=== PATIENT | male | born 1960 | race African-American/Black ===

== ENCOUNTER 2016-07-31 08:38 | Emergency (ER) | payer OTHER ==
[~2016-07-31] VITALS: Ht 167.6 cm; Wt 82.3 kg
[~2016-07-31 08:38] MED LIST: ERYTHROMYC1 APPLICAT LEFT EYE; EYE DROPS15 M1 BOTH EYES
[2016-07-31] MEDS ORDERED: TYLENOL WITH C1 EACH PO (10:27)
[2016-07-31 10:38] VITALS: BP 113/81
== END 2016-07-31 10:40 | disposition home or self-care (01) ==
LOC: EME 08:38
DX: M16.12 Unilateral primary osteoarthritis, left hip (principal); F17.200 Nicotine dependence, unspecified, uncomplicated
CPT/HCPCS: 73502; 99281; 99284

== ENCOUNTER 2017-02-17 11:49 | Emergency (ER) | payer OTHER ==
[~2017-02-17] VITALS: Ht 167.6 cm; Wt 82.5 kg
[~2017-02-17 11:49] MED LIST changes: +TYLENOL WITH C1 EACH PO
[2017-02-17 14:48] LABS: EOSINOPHIL (%) 3.2 % (0-5); EOSINOPHIL COUNT 0.2 K/uL (0-0.3); HEMATOCRIT 36.1 % (38.0-50.0); IMMATURE GRANULOCYTE (%) 0.2 % (0.0-0.7); INSTRUMENT ABS NEUTROPHIL CT 1.9 K/uL; LYMPHOCYTE COUNT 2.7 K/uL (1.0-2.8); MCH 22.9 PG (29.0-34.0); MCHC 34.9 G/DL (30.0-36.0); MCV 65.6 FL (86-99); MEAN PLAT.VOLUME 11.7 uM^3 (9.0-12.4); MONOCYTE (%) 5.6 % (3-12); MONOCYTE COUNT 0.3 K/uL (0-0.8); NEUTROPHIL (%) 37.5 % (45-76); NEUTROPHIL COUNT 1.9 K/uL (1.8-6.4); NRBC (%) 0.6 /100 WBC (0-0); PLATELET COUNT 193 K/uL (156-360); RBC DIS.WIDTH-CV 16.2 % (11.8-14.6); RBC DIS.WIDTH-SD 36.8 % (39-53)
[2017-02-17 14:50] LABS: CHLORIDE 108 mEq/L (99-109); POTASSIUM 3.8 mEq/L (3.7-5.4); SODIUM 141 mEq/L (136-147)
[2017-02-17 14:52] LABS: GLUCOSE 180 mg/dL (70-99)
[2017-02-17 14:54] LABS: ANION GAP 10 MEQ/L (2-14)
[2017-02-17 14:56] LABS: GFR ESTIMATE (CALCULATED) > 59 mL/min/
[2017-02-17 14:57] LABS: UREA NITROGEN (BUN) 10 mg/dL (9-23)
[2017-02-17] MEDS ORDERED: CIPRODEX OTIC7.5 ML LEFT EAR ×2 (16:32→16:36)
[2017-02-17] MEDS ORDERED: LEVAQUIN750 MG PO (16:32)
[2017-02-17] MEDS ORDERED: CLARITIN,ALAVAR10 MG PO (16:32)
[2017-02-17 16:48] VITALS: BP 142/87
== END 2017-02-17 16:48 | disposition home or self-care (01) ==
LOC: EME 11:49
PROVIDERS: Physician Assistant
DX: H60.92 Unspecified otitis externa, left ear (principal); H70.92 Unspecified mastoiditis, left ear; J30.2 Other seasonal allergic rhinitis; E11.9 Type 2 diabetes mellitus without complications; F17.200 Nicotine dependence, unspecified, uncomplicated
CPT/HCPCS: 70450; 80048; 85025; 99281; 99284; J1885; J7120